=== PATIENT | male | born 1970 ===

== ENCOUNTER 2018-08-25 19:40 | Emergency (ER) | payer OTHER ==
[2018-08-25 19:55] VITALS: TEMP 96.8
--- NOTE | 2018-08-25 20:58 | ED PDOC ---
HPI: Chest Pain Time Seen by Provider: 08/25/18 20:25 Chief Complaint (Nursing): Chest Pain Chief Complaint (Provider): Chest Pain History Per: Patient History/Exam Limitations: no limitations Current Symptoms Are (Timing): Better Additional Complaint(s): Jeffrey Ceja is a 47 year old [place]iqu[place] male with a past medical history of DVT and PE, who presents to the emergency department today complaining of chest pain. Patient states that he was formally on xarelto but has not taken it in the past year. He further reports that his initial PE was provoked by a long flight and states that he has recently had multiple flights. He has flown from [place] to [place], [place] [facility] [place], and [place] to [place]. Patient states that today he felt a pulling sensation in the middle of his chest. He states that it reminded him of the symptoms of his previous PE. He went to urgent care in [place], [place], who encouraged him to go to ED due to his previous risk factors. His EKG at the urgent care was normal. Patient refused to go to hospital via ambulance and decided to drive because he lives near this hospital. Upon arrival he states that he feels no chest pain and that he feels well, however he further reported that he was not highly symptomatic with previous PE. Of note, patient additionally report Hx of HTN and HLD but does not take any medications for it. PMD: no provider - Risk Factors PE Risk Factors: Pos: Previous DVT, Previous PE Past Medical History Reviewed: Historical Data, Nursing Documentation, Vital Signs Vital Signs: Last Vital Signs Temp 96.8 F L 08/25/18 19:47 Pulse 78 08/25/18 19:47 Resp 18 08/25/18 19:47 BP 162/113 H 08/25/18 19:47 Pulse Ox 99 08/25/18 19:47 - Medical History PMH: Deep Vein Thrombosis, HTN (recently dx), Hyperlipidemia, Pulmonary Embolism - Surgical History Surgical History: No Surg Hx - Family History Family History: States: Unknown Family Hx - Social History Alcohol: Occasional - Allergies Allergies/Adverse Reactions: Allergies Allergy/AdvReac Type Severity Reaction Status Date / Time No Known Allergies Allergy Verified 08/25/18 19:46 Review of Systems ROS Statement: Except As Marked, All Systems Reviewed And Found Negative Cardiovascular: Positive for: Chest Pain Physical Exam - Reviewed Nursing Documentation Reviewed: Yes Vital Signs Reviewed: Yes - Physical Exam Appears: Positive for: Non-toxic, No Acute Distress Head Exam: Positive for: ATRAUMATIC, NORMOCEPHALIC Skin: Positive for: Normal Color, Warm, Dry Eye Exam: Positive for: Normal appearance, EOMI, PERRL ENT: Positive for: Normal ENT Inspection Neck: Positive for: Normal, Painless ROM, Supple Cardiovascular/Chest: Positive for: Regular Rate, Rhythm. Negative for: Murmur Respiratory: Positive for: Normal Breath Sounds. Negative for: Respiratory Distress Gastrointestinal/Abdominal: Positive for: Normal Exam, Soft. Negative for: Tenderness Back: Positive for: Normal Inspection. Negative for: L CVA Tenderness, R CVA Tenderness, Vertebral Tenderness Extremity: Positive for: Normal ROM. Negative for: Pedal Edema, Deformity Neurologic/Psych: Positive for: Alert, Oriented. Negative for: Motor/Sensory Deficits - Laboratory Results Result Diagrams: 08/25/18 20:50 08/25/18 20:50 - ECG O2 Sat by Pulse Oximetry: 99 (RA) Pulse Ox Interpretation: Normal Medical Decision Making Medical Decision Making: Time: 2033 Impression: 47 year old Martin[place] male with chest pain in setting of recent air travel and previous PE Plan: --Angio Chest PE protocol CT --EKG --CMP --Troponin I --CBC with differential --PTT --PT --Heplock Insertion Time: 00:00 --CTA chest FINDINGS: PULMONARY ARTERIES No evidence of central or segmental pulmonary embolism is seen. AORTA There is no evidence for aneurysm or dissection of the thoracic aorta. LUNGS Bibasilar atelectasis is seen. The lungs appear clear otherwise. PLEURAL SPACES No evidence of pneumothorax. No pleural effusion. HEART Normal heart size. No significant pericardial effusion. LYMPH NODES No lymphadenopathy is evident. BONES No focal osseous abnormality or acute fracture. UPPER ABDOMEN Images of the upper abdomen are unremarkable. IMPRESSION: No evidence of pulmonary embolism. Patient stable for discharge home. He will follow up with his PMD regarding further work up of HTN Dx Atypical Chest Pain ttable Scribe Attestation: Documented by Jordon Nunn, acting as a scribe for Arsh Matta MD. Provider Scribe Attestation: All medical record entries made by the Scribe were at my direction and personally dictated by me. I have reviewed the chart and agree that the record accurately reflects my personal performance of the history, physical exam, medical decision making, and the department course for this patient. I have also personally directed, reviewed, and agree with the discharge instructions and disposition. Disposition - Clinical Impression Clinical Impression: Atypical chest pain - Disposition Disposition: Routine/Home Disposition Time: 00:00 Condition: STABLE Instructions: Chest Pain That Is Not Caused by the Heart (DC) Forms: [employer] (Serbian)
[2018-08-25 21:04] LABS: BASO # 0.1 K/uL (0.0-0.2); BASO % 1.2 % (0.0-2.0); EOS # 0.1 K/uL (0.0-0.7); EOS % 1.8 % (0.0-4.0); HEMOGLOBIN 14.3 g/dL (12.0-18.0); LYMPH % 41.2 % (20.0-40.0); MEAN CORPUSCULAR HEMOGLOBIN 32.7 pg (27.0-31.0); MEAN CORPUSCULAR HGB CONC 34.1 g/dL (33.0-37.0); MEAN PLATELET VOLUME 9.4 fl (7.2-11.7); MONO # 0.4 K/uL (0.0-0.8); MONO % 5.9 % (0.0-10.0); NEUT # 3.6 K/uL (1.8-7.0); NEUT % 49.9 % (50.0-75.0); RBC 4.38 Mil/uL (4.40-5.90); RED CELL DISTRIBUTION WIDTH 13.5 % (11.5-14.5); WHITE BLOOD COUNT 7.3 K/uL (4.8-10.8)
[2018-08-25 21:06] LABS: INR 1.2; PROTHROMBIN TIME 13.5 Seconds (9.8-13.1)
[2018-08-25 21:08] LABS: PARTIAL THROMBOPLASTIN TIME 26.1 Seconds (25.6-37.1)
[2018-08-25 21:38] LABS: ALB/GLOB RATIO 1.1 (1.0-2.1); ALBUMIN 4.2 g/dL (3.5-5.0); BLOOD UREA NITROGEN 22 mg/dl (9-20); CALCIUM 9.2 mg/dL (8.4-10.2); GFR NON-AFRICAN AMERICAN > 60
[2018-08-25 21:44] LABS: ALT/SGPT 37 U/L (21-72); AST/SGOT 34 U/L (17-59)
[2018-08-25] MEDS ORDERED: Iodixanol 320 MG/ML 100 ML BOTTLE IV ONE (22:16)
[2018-08-25] MEDS ORDERED: Sodium Chloride 0.9% 50 ML IV ONE (22:16)
[2018-08-26 00:23] VITALS: BP 120/77; PULSE 66; RESP 17
[2018-08-26 05:29] VITALS: O2SAT 99
--- NOTE | 2018-08-26 09:53 | CT ---
Date of service: 08/25/2018 PROCEDURE: CT Chest with contrast (Pulmonary Angiogram) HISTORY: chest pain r/o PE COMPARISON: None available. TECHNIQUE: Axial computed tomography images were obtained of the chest in the pulmonary arterial phase of enhancement. Coronal and sagittal reformatted images were created and reviewed. Intravenous contrast dose: Visipaque 320, 95 cc Radiation dose: Total exam DLP = 372.32 mGy-cm. This CT exam was performed using one or more of the following dose reduction techniques: Automated exposure control, adjustment of the mA and/or kV according to patient size, and/or use of iterative reconstruction technique. FINDINGS: PULMONARY ARTERIES: Unremarkable. No pulmonary embolism. AORTA: No acute findings. No thoracic aortic aneurysm. No aortic atherosclerotic calcification or mural plaque present. LUNGS: Unremarkable. No nodule, mass or pulmonary consolidation. PLEURAL SPACES: Unremarkable. No effusion or pneumothorax. HEART: Unremarkable. No cardiomegaly. No significant pericardial effusion. LYMPH NODES: No lymphadenopathy. BONES, CHEST WALL: Unremarkable. No fracture or destructive lesion OTHER FINDINGS: Unremarkable. IMPRESSION: Unremarkable CT pulmonary angiogram. No pulmonary embolus. No definite acute cardiopulmonary findings. Concordant preliminary report from [facility], 08/26/2018 12 o'clock a.m..
--- NOTE | 2018-08-26 20:49 | CARD ---
APPROVED REPORT Date of service: 08/25/2018 EKG Measurement Heart [id number] <Conclusion> Sinus rhythm with 1st degree AV block Cannot rule out Inferior infarct, age undetermined Abnormal ECG
== END 2018-08-26 00:24 | disposition home or self-care (01) ==
LOC: H.ER 19:40
DX: R07.89 Other chest pain (principal); E78.5 Hyperlipidemia, unspecified; I10 Essential (primary) hypertension; Z79.01 Long term (current) use of anticoagulants; Z86.711 Personal history of pulmonary embolism; Z86.718 Personal history of other venous thrombosis and embolism; I44.0 Atrioventricular block, first degree
CPT/HCPCS: 71275; 80053; 84484; 85025; 85610; 85730; 93005; 99283; Q9967